=== PATIENT | male | born 1960 | race African-American/Black ===

== ENCOUNTER 2016-11-23 13:23 | Emergency (ER) | payer OTHER ==
[~2016-11-23] VITALS: Ht 170.2 cm; Wt 99.8 kg
--- NOTE | 2016-11-23 13:46 | ED INFLUENZA/URI COMPLAINT ---
History of Present Illness General Chief Complaint: Upper Respiratory Sx/Fever Stated Complaint: FEVER,COUGH,CONGESTION Source: patient Exam Limitations: no limitations Vital Signs & Intake/Output Vital Signs & Intake/Output Vital Signs Date Time Temp Pulse Resp B/P Pulse O2 O2 Flow FiO2 Ox Delivery Rate 11/23 1506 76 148/84 11/23 1424 97 11/23 1333 98.7 79 18 155/91 97 Room Air Allergies Coded Allergies: NO KNOWN ALLERGIES (11/23/16) Reconcile Medications Azithromycin (Zithromax) 250 MG TABLET 1 DP PO AD BRONCHITIS 2 the first day followed by 1 for days 2-5 Benzonatate (Tessalon Perle) 100 MG CAPSULE 1 CAP PO TID PRN COUGH Methylprednisolone. (Medrol) 4 MG TAB.DS.PK 1 DP PO AD BRONCHITIS 6 on day 1 then reduce by one tablet daily until gone Triage Note: 56 Y/O MALE C/O URI SYMPTOMS X FEW DAYS; WAS EVAL'D BY PMD AND GIVEN INHALERS; HAS BEEN USING WITH NO RELIEF. C/O "RIB PAIN" AND "DRY" COUGH. SPEAKING CLEARLY WITH NO DISTRESS NOTED. SAT 96% AFEBRILE. Triage Nurses Notes Reviewed? yes Onset: Gradual Duration: day(s): (3-4) Timing: remote history Severity: moderate Severity Numbers: 6 Prior Episodes/Possible Cause: occassional episodes HPI: Patient is a 56-year-old male presenting to the emergency department with chief complaint of dry cough, malaise, upper respiratory congestion and thing going on for the past several days worse since yesterday. He says primary care physician who put him on 2 different types of inhalers. He reports they seemed to work by his symptoms return. Denies any nausea vomiting fevers or chills. No chest pain. Denies shortness of breath except with coughing. No sick contacts or recent travel. Denies any lower extremity swelling. No sputum production. Patient reports he now has right-sided rib pain when he coughs. Denies taking anything to help with the pain. Pain only present with coughing. (ZEUS JAQUEZ) Past History Travel History Traveled to [place] past 21 day No Medical History Any Pertinent Medical History? 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 No (ZEUS JAQUEZ) Review of Systems Review of Systems Constitutional: Reports: no symptoms. Comments Review of systems: See HPI, All other systems negative. Constitutional, no chills fever or weight loss HEENT: No visual changes no sore throat Cardiovascular: No chest pain ,palpitation , orthopnea or ankle swelling Skin, no jaundice no rashes Respiratory: No sputum or hemoptysis GI: No nausea no vomiting : No dysuria No hematuria Muscle skeletal: no back pain, no neck pain, Neurologic: No numbness no confusion Psych: No stress anxiety Immunology: No splenectomy or history of AIDS (ZEUS JAQUEZ) Physical Exam Physical Exam General Appearance: well developed/nourished, no apparent distress, alert, awake , comfortable Ears, Nose, Throat: pharynx normal, nasal congestion Comments: Well-developed well-nourished person in no acute distress HEENT: Pupils equally round and reactive to light and accommodation. Nose is atraumatic. External auditory canal and Tympanic membranes clear. Pharynx normal. No swelling or edema. Clear nasal discharge and bilateral nares. Neck: Supple, no lymphadenopathy, normal range of motion without pain or tenderness Back: Nontender Cardiovascular: Regular rate and rhythms no murmurs rubs or gallops, normal JVP Respiratory: Chest nontender. No respiratory distress. Expiratory wheezing auscultation bilaterally Extremity: No edema, no calf tenderness to palpation Neuro: Alert oriented x3 Skin: No appreciable rash on exposed skin, skin is warm and dry. Psych: Mood and affect is normal, memory and judgment is normal. Core Measures Severe Sepsis Present: No Septic Shock Present: No (ZEUS JAQUEZ) Progress Differential Diagnosis: influenza, pneumonia, pharyngitis, sinusitis, bronchitis Plan of Care: Orders Procedure Date/time Status XRY-CHEST XRAY, PA AND LATERAL 11/23 1334 Active Current Medications Sig/Arjun Start time Last Medication Dose Stop Time Status Admin Albuterol Sulfate 3 ML ONCE ONE 11/23 1415 AC (Proventil) 11/23 1416 Ipratropium Hoffman 2.5 ML ONCE ONE 11/23 1415 AC (Atrovent) 11/23 1416 Prednisone 60 MG ONCE ONE 11/23 1415 AC 11/23 1416 Diagnostic Imaging: Viewed by Me: Radiology Read. Discussed w/RAD: Radiology Read. CXR Impression: no acute abnormality, no infiltrates, normal size heart, normal mediastinum Initial ED EKG: none Comments: Patient given by mouth 60 mg prednisone arrival. Chest x-ray is negative. Lately bronchitis. Patient will be treated with Z-Qasim, continue inhalers, he'll surmises Bosak tomorrow. He'll return for any worsening symptoms or concerns. Likely has some pleurisy costochondritis along with bronchitis as well. Patient nontoxic. (ZEUS JAQUEZ) Departure Departure Time of Disposition: 1458 Disposition: HOME OR SELF CARE Condition: Stable Clinical Impression Primary Impression: Bronchitis Secondary Impressions: Costochondritis Referrals: DEVIN ZAPIEN,CHELITA Ramirez (PCP/Family) Additional Instructions: Follow-up with your primary care physician call to make an appointment. Increase fluids. Take Z-Qasim as prescribed. Take Medrol dose pack starting tomorrow as prescribed. Continue using inhalers as previously prescribed. Take Tessalon Perles as prescribed for cough. He can also use myvy-qhe-harjeci anti- inflammatories to help with inflammation. Departure Forms: Customer Survey General Discharge Information Prescriptions: Current Visit Scripts Azithromycin (Zithromax) 1 DP PO AD #6 TAB 2 the first day followed by 1 for days 2-5 Methylprednisolone. (Medrol) 1 DP PO AD #1 DP 6 on day 1 then reduce by one tablet daily until gone Benzonatate (Tessalon Perle) 1 CAP PO TID PRN COUGH #30 CAP (ZEUS JAQUEZ) PA/LOG YARD MANAGER Co-Sign Statement Statement: ED Attending supervision documentation- [] I saw and evaluated the patient. I have also reviewed all the pertinent lab results and diagnostic results. I agree with the findings and the plan of care as documented in the PA's/LOG YARD MANAGER's documentation. x I have reviewed the ED Record and agree with the PA's/LOG YARD MANAGER's documentation. [] Additions or exceptions (if any) to the PAs/LOG YARD MANAGER's note and plan are summarized below: [] (TOBIAS ZAPIEN,DONYA)
--- NOTE | 2016-11-23 14:32 | RADIOLOGY REPORT ---
EXAMINATION: XR CHEST CLINICAL INFORMATION: Cough. COMPARISON: None. TECHNIQUE: PA and lateral views of the chest were obtained. FINDINGS: Heart size is at the upper limit of normal. Mediastinal silhouette is within normal limits. Slight elevation of the right hemidiaphragm. Lungs are clear. No focal consolidation, effusion, edema. No pneumothorax. No acute osseous process. IMPRESSION: No focal consolidation.
[2016-11-23] MEDS ORDERED: ZITHROMAX250 M2 PO (15:01)
[2016-11-23] MEDS ORDERED: MEDROL4 M2 PO (15:01)
[2016-11-23] MEDS ORDERED: TESSALON PERLE100 M1 PO (15:01)
[2016-11-23 15:06] VITALS: BP 148/84
== END 2016-11-23 15:08 ==
LOC: ERH 13:23
DX: J40 Bronchitis, not specified as acute or chronic (principal); M94.0 Chondrocostal junction syndrome [Tietze]; Z87.891 Personal history of nicotine dependence
CPT/HCPCS: 1263